=== PATIENT | male | born 1980 | race Caucasian/White ===

== ENCOUNTER 2019-08-24 09:38 | Outpatient (CLI) | payer OTHER, SELFPAY ==
--- NOTE | ~2019-08-24 | MR_ITS ---
EXAMINATION: MR thoracic spine wo con, MR lumbar spine wo con DATE: 08/24/2019 11:09 INDICATION: Lumbar radiculopathy. TECHNIQUE: 1. Magnetic resonance imaging (MRI) of the thoracic spine was performed without intravenous contrast. Sagittal localizer T1-weighted FSE of the cervicothoracic spine was obtained. Thoracic spine sequenc es included sagittal T2-weighted FSE, sagittal T1-weighted SE, Sagittal T2-weighted FS FSE, and axial T2-weighted FSE. 2. Lumbar spine was performed without intravenous contrast. Sequences included sagittal T2-weighted F SE, sagittal T2-weighted FS FSE, sagittal T1-weighted FSE, and axial T2-weighted FSE. COMPARISON: CT of the thoracic and lumbar spine dated 08/03/2017 FINDINGS: Thoracic spine: Alignment is normal. Metallic field artifact associated with a plate-screw fixation for anterior spin al fusion at C6-C7. Chronic mild anterior wedging at T12 with small Schmorl's node along the superior endplate. More cephalad thoracic vertebral body heights are normal. Mild disc desiccation and mild d isc height loss at T8-T9. Additional mild disc desiccation without significant disc height loss at T7 -T8. Very small bilateral paracentral disc protrusions at T4-T5 through T6-T7 with negligible central canal stenosis. There are annular fissures with central disc extrusions at T7-T8 and T8-T9 which ext end 2 mm cephalad and caudal to the level of the endplates. These indent the ventral surface of the c ord resulting in mild central canal stenosis at both levels. Additional annular fissures at T9-T10 an d T10-T11 with broad based disc protrusions extending from from left to right from the subarticular z one to subarticular zone and superimposed small extrusions with disc material extending a few millime ter cephalad to the level of the inferior endplate at the right neural foramina. These also result in mild central canal stenosis but with no associated deformity of the cord. There is normal cord signa l throughout. 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 This contributes t o moderate bilateral neural foraminal stenosis at T9-T10 and T10-T11 and mild neural foraminal stenos is at several additional levels on the left and right in the more cephalad thoracic spine. Paraverteb ral soft tissues are unremarkable. Lumbar spine: Postoperative change of discectomy and left hemilaminotomy at L4-L5. Metallic field artifact associat ed with interbody fusion device and left vertical lauren and pedicle screw fixation for combined anterio r and posterior spinal fusion at this level. The postoperative changes are new since the prior CT. 3 mm retrolisthesis L4 on L5. Vertebral body heights are normal. Normal marrow signal. Annular fissure with small disc extrusion and negligible disc height loss at L5-S1. The lumbar central canal is con genitally small with short pedicles. The conus medullaris terminates at L1. There is normal signal in the caudal spinal cord. Paravertebral soft tissues are unremarkable. The following disc levels are s pecifically discussed: T12-L1: Disc is minimally bulging. There is mild bilateral facet joint osteoarthritis. There is no ne ural foraminal stenosis. There is no central canal stenosis. L1-L2: Disc is mildly bulging. There is mild bilateral facet joint osteoarthritis. There is minimal b ilateral neural foraminal stenosis. There is mild central canal stenosis. L2-L3: Disc is mildly bulging. There is mild bilateral facet joint osteoarthritis. There is mild bila teral neural foraminal stenosis. There is mild central canal stenosis. L3-L4: Disc is mildly bulging. There is mild bilateral facet joint osteoarthritis. There is mild bila teral neural foraminal stenosis. There is mild to moderate central canal stenosis. L4-L5: Postoperative changes of discectomy, left hemilaminotomy and left posterior fusion with left v ertical lauren and pedicle sc
== END 2019-08-24 09:39 | disposition home or self-care (01) ==
PROVIDERS: PCP Family Medicine; Visit Provider Nurse Practitioner Adult Health
DX: M47.814 Spondylosis without myelopathy or radiculopathy, thoracic region (principal); M47.26 Other spondylosis with radiculopathy, lumbar region; Z98.1 Arthrodesis status
CPT/HCPCS: 72146; 72148